=== PATIENT | male | born 1950 | race African-American/Black ===

== ENCOUNTER 2019-01-11 09:28 | Day surgery (SDC) | payer MEDICARE, OTHER ==
[2019-01-11] MEDS ORDERED: PROPOFOL 40 ML (11:42)
[2019-01-11] MEDS ORDERED: LIDOCAINE 100 MG SYRINGE (11:42)
[2019-01-11] MEDS ORDERED: FENTAnyl 50 MCG/ML VIAL (11:42)
== END 2019-01-11 15:33 | disposition home or self-care (01) ==
LOC: GIL 09:28
DX: Z12.11 Encounter for screening for malignant neoplasm of colon (principal); K62.1 Rectal polyp; K57.30 Diverticulosis of large intestine without perforation or abscess without bleeding; K64.8 Other hemorrhoids; K29.60 Other gastritis without bleeding; K21.9 Gastro-esophageal reflux disease without esophagitis; K44.9 Diaphragmatic hernia without obstruction or gangrene
CPT/HCPCS: 43239; 88305; 88312